=== PATIENT | male | born 1970 | race Caucasian/White ===

== ENCOUNTER 2019-06-25 09:01 | Emergency (ER) | payer OTHER ==
[~2019-06-25] VITALS: Ht 182.9 cm; Wt 113.4 kg
[2019-06-25 09:05] VITALS: Ht 182.9 cm; Wt 113.4 kg
[2019-06-25 09:54] VITALS: BP 163/103
== END 2019-06-25 09:54 | disposition home or self-care (01) ==
LOC: ED 09:01
DX: T78.3XXA Angioneurotic edema, initial encounter (principal); I10 Essential (primary) hypertension; E78.00 Pure hypercholesterolemia, unspecified; E66.9 Obesity, unspecified; Z68.33 Body mass index [BMI] 33.0-33.9, adult
CPT/HCPCS: J1200; J2930

== ENCOUNTER 2019-06-26 15:40 | Emergency (ER) | payer OTHER ==
[~2019-06-26] VITALS: Ht 182.9 cm; Wt 116.6 kg
[2019-06-26 15:55] VITALS: Ht 182.9 cm; Wt 116.6 kg
[2019-06-26 18:13] VITALS: BP 158/100
== END 2019-06-26 18:05 | disposition home or self-care (01) ==
LOC: ED 15:40
DX: T78.3XXA Angioneurotic edema, initial encounter (principal); I10 Essential (primary) hypertension; E78.00 Pure hypercholesterolemia, unspecified; Z86.73 Personal history of transient ischemic attack (TIA), and cerebral infarction without residual deficits; Z98.890 Other specified postprocedural states; Z88.8 Allergy status to other drugs, medicaments and biological substances
CPT/HCPCS: J1200; J2930